=== PATIENT | female | born 1965 | race Caucasian/White ===

== ENCOUNTER 2022-11-30 11:45 | Outpatient (REF) | payer BC, SELFPAY | END 2022-11-30 11:46 | disposition home or self-care (01) | LOC: LBN 11:45 | PROVIDERS: Visit Provider Obstetrics & Gynecology | DX: B37.31 Acute candidiasis of vulva and vagina (principal) | CPT/HCPCS: 87480; 87510; 87660 ==

== ENCOUNTER 2022-12-02 11:27 | Outpatient (CLI) | payer BC, SELFPAY ==
[2022-12-02 17:16] LABS: ALT 29 U/L (14-59); AST 20 U/L (15-37); Alkaline Phosphatase 89 U/L (46-116); BUN 13 mg/dL (7-18); Bilirubin, Total 0.4 mg/dL (0.2-1.0); CREATININE 0.9 mg/dL (0.55-1.02); Calcium 9.4 mg/dL (8.5-10.1); Chloride 101 mmol/L (98-107); Glucose 99 mg/dL (74-106); Potassium 4.1 mmol/L (3.5-5.1); Sodium 136 mmol/L (136-145); Total Protein 7.9 g/dL (6.4-8.2)
== END 2022-12-02 11:28 | disposition home or self-care (01) ==
LOC: LBO 11:28
PROVIDERS: Visit Provider Obstetrics & Gynecology
DX: N95.0 Postmenopausal bleeding (principal)
CPT/HCPCS: 36415; 80053

== ENCOUNTER 2022-12-13 15:04 | Outpatient (CLI) | payer BC, SELFPAY ==
--- NOTE | 2022-12-13 14:45 | DI.RAD_ITS ---
Exam(s) XR SHOULDER RT COMPLETE 2+V EXAM: XR SHOULDER RT COMPLETE 2+V CLINICAL HISTORY: right shoulder pain. TECHNIQUE: 2D digital imaging was performed of the right shoulder. Two images were obtained. Axill lebron and Grashey views were obtained. COMPARISON: No exams were available for comparison FINDINGS: BONES: No acute fracture is present. No bony destructive lesion is seen. JOINTS: No dislocation present. The acromioclavicular and glenohumeral joints are well maintained. SOFT TISSUE: Normal. IMPRESSION: No acute abnormality. DATA REPOSITORY: RADIATION DOSE DELIVERED:
== END 2022-12-13 15:05 | disposition home or self-care (01) ==
LOC: DIORS 15:04
PROVIDERS: Visit Provider Student in an Organized Health Care Education/Training Program
DX: M75.51 Bursitis of right shoulder (principal)
CPT/HCPCS: 73030

== ENCOUNTER 2023-09-22 01:46 | Outpatient (CLI) | payer BC, SELFPAY ==
[2023-09-22 09:32] LABS: Absolute Basophil Count 0.03 10^3/uL (0.0-0.2); Absolute Eosinophil Count 0.14 10^3/uL (0.0-0.7); Absolute Lymphocyte Count 1.32 10^3/uL (1.2-3.4); Absolute Monocyte Count 0.33 10^3/uL (0.1-0.8); Absolute Neutrophil Count 2.33 10^3/uL (1.2-6.7); Basophils % 0.7 %; Eosinophils % 3.4 %; HCT 41.4 % (36.0-46.0); HGB 13.9 g/dL (11.2-15.7); Lymphocytes % 31.8 %; MCH 30.2 pg (27.0-33.0); MCHC 33.6 % (32.0-36.0); MCV 90 fL (80-95); MPV 10.5 fL (8.0-11.0); Neutrophils % 56.1 %; Platelet Count 272 10^3/uL (130-400); RBC 4.61 10^6/uL (3.93-5.22); RDW-SD 39.7 fL; WBC 4.15 10^3/uL (4.4-10.8)
[2023-09-22 10:00] LABS: ALT 23 U/L (14-59); AST 17 U/L (15-37); Albumin 4.1 g/dL (3.4-5.0); Alkaline Phosphatase 94 U/L (46-116); Anion Gap 5.5 mmol/L (3-11); BUN 18 mg/dL (7-18); CO2 30.5 mmol/L (21.0-32.0); CREATININE 0.9 mg/dL (0.55-1.02); Calculated LDL 155 mg/dL (<100); Chloride 104 mmol/L (98-107); Cholesterol 252 mg/dL (<200); Glucose 91 mg/dL (74-106); HDL Cholesterol 67 mg/dL (40-60); Potassium 3.8 mmol/L (3.5-5.1); Sodium 140 mmol/L (136-145); Total Protein 7.6 g/dL (6.4-8.2); Triglyceride 153 mg/dL (<150)
[2023-09-22 18:20] LABS: Estradiol 24 pg/mL (See Note)
== END 2023-09-22 01:47 | disposition home or self-care (01) ==
LOC: LBO 01:46
PROVIDERS: Visit Provider Obstetrics & Gynecology
DX: N95.1 Menopausal and female climacteric states (principal)
CPT/HCPCS: 36415; 80053; 80061; 82670; 84443; 85025

== ENCOUNTER 2023-12-18 10:55 | Outpatient (CLI) | payer BC, SELFPAY ==
[2023-12-18 11:17] LABS: TSH (W/Ref FT4) 1.09 uIU/mL (0.36-3.74)
[2023-12-18 18:12] LABS: Estradiol 24 pg/mL (See Note)
== END 2023-12-18 10:56 | disposition home or self-care (01) ==
LOC: LBO 10:55
PROVIDERS: Visit Provider Obstetrics & Gynecology
DX: N95.1 Menopausal and female climacteric states (principal)
CPT/HCPCS: 36415; 82670; 83001; 84443

== ENCOUNTER 2024-11-29 15:23 | Outpatient (REF) | payer BC, SELFPAY ==
[2024-12-07 01:27] LABS: Lactoferrin, Qt, Stool <6.25 mcg/mL (<7.25)
== END 2024-11-29 15:24 | disposition home or self-care (01) ==
LOC: LBN 15:23
PROVIDERS: Visit Provider Internal Medicine Gastroenterology
DX: R19.7 Diarrhea, unspecified (principal)
CPT/HCPCS: 83631; 87015; 87269; 87272; 87177

== ENCOUNTER 2024-12-03 04:20 | Outpatient (REF) | payer BC, SELFPAY | END 2024-12-03 04:21 | disposition home or self-care (01) | LOC: LBN 04:20 | PROVIDERS: Visit Provider Internal Medicine Gastroenterology | DX: R19.7 Diarrhea, unspecified (principal) | CPT/HCPCS: 87177 ==

== ENCOUNTER 2024-12-04 18:30 | Outpatient (REF) | payer BC, SELFPAY | END 2024-12-04 18:31 | disposition home or self-care (01) | LOC: LBN 18:30 | PROVIDERS: Visit Provider Internal Medicine Gastroenterology | DX: R19.7 Diarrhea, unspecified (principal) | CPT/HCPCS: 87177 ==

== ENCOUNTER 2024-12-05 21:50 | Outpatient (REF) | payer BC, SELFPAY | END 2024-12-05 21:51 | disposition home or self-care (01) | LOC: LBN 21:50 | PROVIDERS: Visit Provider Internal Medicine Gastroenterology | DX: R19.7 Diarrhea, unspecified (principal) | CPT/HCPCS: 87177 ==